=== PATIENT | male | born 1995 | race African-American/Black ===

== ENCOUNTER 2018-11-11 11:55 | Emergency (ER) | payer MEDICAID ==
[~2018-11-11] VITALS: Ht 170.2 cm; Wt 61.5 kg
[2018-11-11 11:58] VITALS: BP 113/71
== END 2018-11-11 14:38 | disposition home or self-care (01) ==
LOC: ED 13:25
DX: N30.01 Acute cystitis with hematuria (principal); A74.9 Chlamydial infection, unspecified; A54.9 Gonococcal infection, unspecified; I86.1 Scrotal varices; N50.812 Left testicular pain; F17.200 Nicotine dependence, unspecified, uncomplicated
CPT/HCPCS: 76870; 81001; 87491; 87591; 93975; 96372; 99284; J0696

== ENCOUNTER 2018-11-21 17:29 | Emergency (ER) | payer MEDICAID ==
[~2018-11-21] VITALS: Ht 170.2 cm; Wt 61.3 kg
[2018-11-21 22:52] VITALS: BP 103/63
== END 2018-11-22 03:57 ==
LOC: ED 19:32
DX: F23 Brief psychotic disorder (principal); F25.9 Schizoaffective disorder, unspecified; F31.9 Bipolar disorder, unspecified; R68.89 Other general symptoms and signs; F17.200 Nicotine dependence, unspecified, uncomplicated
CPT/HCPCS: 36415; 80053; 80307; 85025; 99285

== ENCOUNTER 2020-03-30 07:42 | Emergency (ER) | payer MEDICAID ==
[~2020-03-30] VITALS: Ht 170.2 cm; Wt 65.0 kg
[2020-03-30 07:48] VITALS: BP 138/93
--- NOTE | 2020-03-30 08:12 | NUR ---
not in lobby
--- NOTE | 2020-03-30 09:13 | NUR ---
pt called for lab. not in lobby
--- NOTE | 2020-03-30 09:21 | NUR ---
no answer in lobby
== END 2020-03-30 09:23 | disposition left against medical advice (07) ==
LOC: ED 07:59
DX: F29 Unspecified psychosis not due to a substance or known physiological condition (principal)
CPT/HCPCS: 99281